=== PATIENT | male | born 1980 | race Caucasian/White ===

== ENCOUNTER 2025-09-12 06:37 | Day surgery (SDC) | payer BC, SELFPAY | END 2025-09-12 10:21 | disposition home or self-care (01) | LOC: GI 06:37 | PROVIDERS: ATTENDING PHYSICIAN Internal Medicine Gastroenterology | DX: R19.4 Change in bowel habit (principal); K64.8 Other hemorrhoids; R13.10 Dysphagia, unspecified; K29.70 Gastritis, unspecified, without bleeding | CPT/HCPCS: 45380; 43239; 88305; 88342 ==